=== PATIENT | female | born 1980 | race African-American/Black ===

== ENCOUNTER 2024-08-24 13:28 | Inpatient (IN) | payer MEDICAID, SELFPAY ==
--- NOTE | 2024-08-21 13:57 | HP.PCM_ITS ---
History and Physical Date of Admission: 08/24/24 HPI: The patient is a 44 year old female presenting for pre-operative visit. She is scheduled for TLH, bilateral salpingectomy and cystoscopy, for adenomyosis, menorrhagia, uterine fibroids on 08/24/24. Procedure discussed along with risks, benefits and complications. Other alternatives discussed for management. Consent form signed? Yes. ? ? 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 ? ? PAST SURGICAL HISTORY PAST SURGICAL HISTORYProcedureLateralityDate? DELIVERY ONLY?04/05/1996? , low cervical? DELIVERY ONLY?04/05/2002?, low cervical? DELIVERY ONLY?04/05/2006?low transverse?LIG/TRNSXJ FLP TUBE ABDL/VAG APPR UNI/BI?04/05/2006?at w/ filshie clips?REMOVAL GALLBLADDER???REMOVAL OF GALLBLADDER?06/03/2010?[facility] ? ? ? CURRENT MEDICATIONS Current Outpatient MedicationsMedicationSigDispenseRefill?norethindrone (AYGESTIN) 5 mg tabletTake 1 tablet by mouth once daily. start after your next period ends30 tablet1?No current facility-administered medications for this visit. ? ? ALLERGIES: Zithromax [Azithromycin] ? PERSONAL HISTORY: SOCIAL HISTORY Social History?Tobacco Use?Smoking status:Every Day??Current packs/day:0.50??Average packs/day:0.5 packs/day for 15.0 years (7.5 ttl pk- yrs)??Types:Cigarettes?Smokeless tobacco:NeverVaping Use?Vaping status:Some Days?Substances:Nicotine?Devices:DisposableSubstance Use Topics?Alcohol use:Not Currently??Comment: drinks about every other weekend, 1 pint of liquor in one weekend?Drug use:Not Currently ? FAMILY HISTORY: FAMILY HISTORY FAMILY HISTORY ProblemRelationAge of Onset?Breast CancerMaternal Aunt??Breast CancerPaternal Aunt??CancerMaternal Grandmother?? intesinal?DiabetesMother?? diet controlled?DiabetesPaternal Grandmother?? insulin dependant ?HypertensionMaternal Grandmother? ? ? REVIEW OF SYMPTOMS: GENERAL: denies fevers or chills ENDOCRINOLOGY: has not been on steroids Cardiology : denies palpitations or chest pain Respiratory: denies SOB or cough Hematology: denies history of prolonged bleeding or easy bruising or VTE Allergy: Denies history of personal or family history of allergy to anesthesia ? PHYSICAL EXAMINATION: ? VITALS: Blood pressure 120/70, pulse 80, height 160 cm (5' 3), weight 82.1 kg (181 lb), last menstrual period 08/07/2024, SpO2 97%. ? GENERAL: The patient is well nourished, well hydrated in no acute distress. , The patient is oriented to time, place, and person. NECK: Supple. No lynphadenopathy, normal thyroid, no thyromegaly. LUNGS: Clear to auscultation bilaterally. no wheezes, rhonchi or rales HEART: Regular rate and rhythm, Normal heart sounds, and No murmurs or gallops ? Pelvic US 03/14/24 Impression The uterus is anteverted and measures 95 mm x 53 mm x 83 mm. The myometrium is heterogeneous, asymmetrically thickened, and echogenic suggestive of adenomyosis. In addition, four fibroids are observed and are described below. The endometrial thickness is 7.8 mm. 1. Right lateral anterior wall subserous fibroid measures 39 mm x 39 mm x 32 mm. 2. Left lateral posterior wall intramural fibroid measures 26 mm x 17 mm x 23 mm. 3. Left lateral anterior wall subserous fibroid measures 36 mm x 29 mm x 30 mm. 4. Left lateral posterior wall intramural fibroid measures 9 mm x 6 mm x 9 mm. The right ovary measures 30 mm x 22 mm x 19 mm and contains a hemorrhagic corpus luteum cyst. The left ovary measures 24 mm x 22 mm x 14 mm. There is trace free fluid visualized. Recommendations Fibroid uterus. Clinical correlation is recommended. Ultrasound findings suggestive for adenomyosis. Clinical correlation is recommended. ? ? IMPRESSION: adenomyosis, fibroids, menorrhagia ? PLAN: The risks/benefits/alternatives and personal involved for the planned TLH, bilateral salpingectomy and cystoscopy were reviewed with the patient. Her questions were answered to her satisfaction and she desires to proceed. Consent was signed. I reviewed with her postop instructions and expectations. D/w her risk of conversion to open or minilap to remove uterus vs bivalve uterus vaginally. Decision made intra-op depending on size of uterus and vaginal access. She is comfortable with this. ? ? I have reviewed and updated past medical and surgical history, medications and allergies Assessment & Plan Assessment/Plan (1) Adenomyosis: (2) Menorrhagia: QUALIFIERS: Menorrhagia type: with regular cycle Qualified Code(s): N92.0 - Excessive and frequent menstruation with regular cycle (3) Intramural and subserous leiomyoma of uterus:
--- NOTE | 2024-08-21 17:01 | PAT.ANE_ITS ---
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 When Was Last Pacemaker Check QUESTION #4 FULL TEXT: You/Your Family Experience fever (hyperthermia) with Anesthesia Last Oral Intake Last Oral intake: Last Oral Intake NPO since Meds taken in AM with sips of water? 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 Female Yes 08/14/24 09:03 HX of Motion Sickness No 08/14/24 09:03 HX of N/V After Surgery No 08/14/24 09:03 Non-Smoker No 08/14/24 09:03 Duration of Surgery greater Yes 08/14/24 09:03 than 60 minutes Number of Risk Factors 2 08/14/24 09:03 PONV Score Moderate Risk 08/14/24 09:03 Respiratory Assessment Respiratory Assessment - professor of musicology: Respiratory Tract Infection Hx - professor of musicology Hx Respiratory Tract Infection No 08/14/24 09:03 STOP Sleep Apnea STOP Sleep Apnea - professor of musicology: STOP Sleep Apnea - professor of musicology Hx Hypertension No 08/14/24 09:03 Hx Sleep Apnea No 08/14/24 09:03 CPAP BIPAP Do you snore loudly (louder No 08/14/24 09:03 than talking or can be heard Do you often feel tired/ No 08/14/24 09:03 fatigued/ sleepy during daytime? Has anyone observed you stop No 08/14/24 09:03 breathing during sleep? STOP Results Negative 08/14/24 09:03 QUESTION #5 FULL TEXT : Do you snore loudly (louder than talking or can be heard through closed doors)? 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 Specify any problems Hx of Preganancy in last 3 N/A 08/14/24 09:03 Months Nurse Filling Out Transfusion NBUCHER 08/14/24 09:03 & Questions: Date: 08/14/24 08/14/24 09:03 Time: 09:08/14/24 09:03 Patient unable to answer at this time (ie. 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: /Reproductive Hx- professor of musicology Hx Now No 08/14/24 09:03 Gestational Age (in weeks): EDC: Hx Hx Para Hx Section [facility] No [facility] Wears glasses Smoker Gastric reflux Home Medications ?Medication ?Instructions ?Recorded ?Last Taken ?Type acetaminophen 500 mg tablet 1,000 mg (2 x 500 mg) PO Q 6H PRN 08/24/24 Unknown Rx (Acetaminophen Extra Strength) fever or pain 30 days # 90 tabs ibuprofen 600 mg tablet 600 mg PO Q6H PRN Pain 30 da ys #60 08/24/24 Unknown Rx TABLETS oxycodone 5 mg tablet 5 mg PO Q8H PRN severe pain 7 days 08/24/24 Unknown Rx #12 TABLETS docusate sodium 100 mg capsule 100 mg PO BID PRN const ipation 20 08/25/24 U nknown Rx days #40 caps Allergy/AdvReac Type Severity Reaction Status Date / Time shellfish derived Allergy Intermediate Hives Verified 08/24/24 08:23 amoxicillin Allergy Unknown PT UNSURE Verified 08/24/24 08:23 OF REACTION Penicillins Allergy Unknown PT UNSURE Verified 08/24/24 08:23 OF REACTION Surgical History History of cholecystectomy History of Social History Smoking Status: Current every day smoker tobacco type: cigarettes Recommendation Anesthesia Recommendation Anesthesia recommendation: OPTIMIZED for anesthesia
--- NOTE | 2024-08-22 07:37 | PAT.ANESEVAL ---
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 When Was Last Pacemaker Check QUESTION #4 FULL TEXT: You/Your Family Experience fever (hyperthermia) with Anesthesia Last Oral Intake Last Oral intake: Last Oral Intake NPO since Meds taken in AM with sips of water? 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 Female Yes 08/14/24 09:03 HX of Motion Sickness No 08/14/24 09:03 HX of N/V After Surgery No 08/14/24 09:03 Non-Smoker No 08/14/24 09:03 Duration of Surgery greater Yes 08/14/24 09:03 than 60 minutes Number of Risk Factors 2 08/14/24 09:03 PONV Score Moderate Risk 08/14/24 09:03 Respiratory Assessment Respiratory Assessment - corrections lieutenant: Respiratory Tract Infection Hx - corrections lieutenant Hx Respiratory Tract Infection No 08/14/24 09:03 STOP Sleep Apnea STOP Sleep Apnea - corrections lieutenant: STOP Sleep Apnea - corrections lieutenant Hx Hypertension No 08/14/24 09:03 Hx Sleep Apnea No 08/14/24 09:03 CPAP BIPAP Do you snore loudly (louder No 08/14/24 09:03 than talking or can be heard Do you often feel tired/ No 08/14/24 09:03 fatigued/ sleepy during daytime? Has anyone observed you stop No 08/14/24 09:03 breathing during sleep? STOP Results Negative 08/14/24 09:03 QUESTION #5 FULL TEXT : Do you snore loudly (louder than talking or can be heard through closed doors)? 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 Specify any problems Hx of Preganancy in last 3 N/A 08/14/24 09:03 Months Nurse Filling Out Transfusion NBUCHER 08/14/24 09:03 & Questions: Date: 08/14/24 08/14/24 09:03 Time: 09:05 08/14/24 09:03 Patient unable to answer at this time (ie. 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 - corrections lieutenant: /Reproductive Hx- corrections lieutenant Hx Now No 08/14/24 09:03 Gestational Age (in weeks): EDC: Hx Hx Para Hx Section SAB No 08/14/24 09:03 PFSH Medical History (Updated 08/21/24 @ 13:[address] Linsey Pritchett MD) Wears glasses Smoker Gastric reflux Allergy/AdvReac Type Severity Reaction Status Date / Time shellfish derived Allergy Intermediate Hives Verified 08/14/24 09:02 amoxicillin Allergy Unknown PT UNSURE Verified 08/14/24 09:02 OF REACTION Penicillins Allergy Unknown PT UNSURE Verified 08/14/24 09:02 OF REACTION Surgical History (Updated 08/14/24 @ 09:09 by Yumiko Hanna) History of cholecystectomy History of Social History Smoking Status: Current every day smoker tobacco type: cigarettes Audit: Pertinent Findings Pertinent Findings EKG Perinent findings: review on day of procedure Recommendation Anesthesia Recommendation Anesthesia recommendation: OPTIMIZED for anesthesia
[2024-08-24] VITALS (12 sets, daily range): BP systolic 110–131; BP diastolic 47–92; PULSE 79–91; RESP 16–18; TEMP 36.3–36.7; O2SAT 97–100; BMI 32.1
--- NOTE | 2024-08-24 07:25 | PRE.ANES_ITS ---
ASA Classification* ASA Classification ASA Classification: 2 Assessment & Plan Anesthesia* Anesthesia Assessment Anesthesia Assessment: Discussed sedation and/or anesthesia options, risks, benefits, and alternatives with patient/parents/legal guardian/POA. Questions invited. The patient/parents/legal guardian/POA seems to understand and agrees to proceed with anesthesia plan. Reviewed the physical assessment, medical history, allergy history and patient home medications list prior to surgery/procedure/anesthetic and documented any changes. Performed airway and anesthesia risk assessments. 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 When Was Last Pacemaker Check QUESTION #4 FULL TEXT: You/Your Family Experience fever (hyperthermia) with Anesthesia Last Oral Intake Last Oral intake: Last Oral Intake NPO since Meds taken in AM with sips of water? 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 Has anyone observed you stop No 08/14/24 09:03 breathing during sleep? STOP Results Negative 08/14/24 09:03 QUESTION #5 FULL TEXT : Do you snore loudly (louder than talking or can be heard through closed doors)? 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 Specify any problems Hx of Preganancy in last 3 N/A 08/14/24 09:03 Months Nurse Filling Out Transfusion NBUCHER 08/14/24 09:03 & Questions: Date: 08/14/24 08/14/24 09:03 Time: 09:05 08/14/24 09:03 Patient unable to answer at this time (ie. 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: /Reproductive Hx- accountant machine processing Hx Now No 08/14/24 09:03 Gestational Age (in weeks): EDC: Hx Hx Para Hx Section SAB No 08/14/24 09:03 Active Medications Active Medications: Current Medications Generic Name Dose Route Start Last Admin Trade Name Freq PRN Reason Stop Dose Admin Acetaminophen 1,000 mg 08/24/24 10:15 Acetaminophen 500 Mg Tablet PO 08/24/24 10:16 PREOP ONE Celecoxib 400 mg 08/24/24 10:15 Celecoxib 200 Mg Capsule PO 08/24/24 10:16 PREOP ONE Dexamethasone Sodium Phosphate 8 mg 08/24/24 10:15 Dexamethasone 4 Mg/Ml Vial IV 08/24/24 10:16 INTRAOP ONE Enoxaparin Sodium 40 mg 08/24/24 10:15 Enoxaparin 40 Mg/0.4 Ml Syringe SC 08/24/24 10:16 PREOP ONE Gabapentin 600 mg 08/24/24 10:15 Gabapentin 600 Mg Tablet PO 08/24/24 10:16 PREOP ONE Lactated Ringer's 1,000 mls @ 40 mls/hr 08/24/24 10:15 IV .Q25H FORREST Cefazolin Sodium 2 gm/ Sodium 110 mls @ 150 mls/hr 08/24/24 10:15 Chloride IV 08/24/24 10:58 INTRAOP ONE Lactated Ringer's 1,000 mls @ 40 mls/hr 08/24/24 10:15 IV .Q25H FORREST Insulin Human Lispro 0 unit 08/24/24 10:15 Insulin Lispro 100 Unit/Ml Insuln.Pen SC Q4H PRN PRN BG >/= 180, SEE PROTOCOL Protocol Ondansetron HCl 4 mg 08/24/24 10:15 Ondansetron 4 Mg/2 Ml Vial IV 08/24/24 10:16 INTRAOP ONE Phenazopyridine HCl 190 mg 08/24/24 10:15 Phenazopyridine 95 Mg Tablet PO 08/24/24 10:16 PREOP ONE Scopolamine HBr 1 patch 08/24/24 10:15 Scopolamine 1mg/72hr Patch TD 08/24/24 10:16 PREOP ONE PFSH Medical History Wears glasses Smoker Gastric reflux Allergy/AdvReac Type Severity Reaction Status Date / Time shellfish derived Allergy Intermediate Hives Verified 08/14/24 09:02 amoxicillin Allergy Unknown PT UNSURE Verified 08/14/24 09:02 OF REACTION Penicillins Allergy Unknown PT UNSURE Verified 08/14/24 09:02 OF REACTION Surgical History History of cholecystectomy History of Social History Smoking Status: Current every day smoker tobacco type: cigarettes Review of Systems (Anesthesia) ROS Narrative System reviewed and no additional complaints, except as documented.
[2024-08-24 09:07] LABS: Hematocrit 33.2 % (37-47); Mean Corp Hgb Conc 33.1 g/dL (32-36); Mean Corpuscular Hgb 28.1 pg (27.0-32.0); Mean Corpuscular Volume 84.7 fL (81-99); Mean Platelet Vol. 8.7 fl (6.2-12.0); Platelet Count 297 K/mm3 (150-450); RBC Distribution Width CV 14.8 % (11.6-14.6); RBC Distribution Width SD 45.6 fl (35.1-43.9); Red Blood Count 3.92 M/mm3 (4.2-5.4); White Blood Count 5.8 K/mm3 (4.4-11.0)
[2024-08-24 09:07] LABS: Internal QC Validated? YES +Cl - CLEAR BKGD; Pregnancy, Urine Negative Negative
[2024-08-24] MEDS: Scopolamine 1mg/72hr Patch 1 PATCH TD (09:08)
[2024-08-24] MEDS: Enoxaparin 40 MG/0.4 ML Syringe SC (09:08)
[2024-08-24] MEDS: Lactated Ringers 1,000 ML 40 ML IV (09:08)
[2024-08-24 09:09] LABS: Bedside Glucose 107 mg/dL (74-106)
[2024-08-24] MEDS: Celecoxib 200 MG Capsule 400 MG PO (09:09)
[2024-08-24] MEDS: Phenazopyridine 95 MG Tablet 190 MG PO (09:09)
[2024-08-24] MEDS: Acetaminophen 500 MG Tablet 1000 MG PO ×3 (09:09→23:11)
[2024-08-24] MEDS: Gabapentin 600 MG Tablet PO (09:10)
[2024-08-24 09:28] LABS: Magnesium 1.6 mg/dL (1.5-2.2)
[2024-08-24] MEDS: Magnesium 2 GM for ERAS IV (10:00)
--- NOTE | 2024-08-24 10:15 | FALS_PTH ---
PATIENT: ALYSON BRUNO LOC: [facility] U#:[id number] AGE/SX: 44/F ROOM: [facility]318 RE08/24/[address]: Dr. Linsey Pritchett MD : 1980 BED: 1 DIS: 08/25/2024 SPEC #: [id number] RECD: 08/24/24 15:21 STATUS: KASH RUIZ #: [id number] ZACHARY: 08/24/24 10:[address]: Linsey Pritchett DEPT: SURGICAL PATHOLOGY RECD BY: Sarkis Lipscomb ENTERED: 08/24/24 15:53 SP TYPE: FALL TUBES OTHR DR: No Primary Care Phys Tissues: A - Uterus, NOS B - Fallopian tube C - Fallopian tube Procedures: Surgery Specimen Level II Surgery Specimen Level V HEADER OPERATION: ERAS, open hysterectomy, bilateral salpingectomy, right oopherectomy PRE-OP DIAGNOSIS: Adenomyosis, menorrhagia, intramural and subserous leiomyoma of uterus TISSUE SUBMITTED: A- Uterus, B- Right fallopian tube and ovary, C- Left fallopian tube MICROSCOPIC DIAGNOSIS A. Uterus, hysterectomy: * Benign squamous epithelium and endocervical glandular tissue with squamous metaplasia * Secretory endometrium * Adenomyosis * Leiomyomata B. Right fallopian tube and ovary, right salpingo-oophorectomy: * Corpus luteum * Corpora albicantia * Benign fallopian tube with plical fibrosis C. Left fallopian tube, left salpingectomy: * Benign fallopian tube with plical fibrosis MICROSCOPIC DESCRIPTION Slides are reviewed. GROSS DESCRIPTION A. Received in formalin in a container labeled with the patient's name, date of , and uterus is a 174.6 g large and globoid hysterectomy specimen measuring 10 cm from fundus to ectocervix, 6.5 cm from cornu to cornu, and 5.0 cm from anterior to posterior. The serosa is floyd-pink with dense adhesions and multiple shaggy, disrupted areas with protruding underlying nodules. The ectocervix is diffusely roughened measuring approximately 1.8 x 1.1 cm with a 0.3 cm slitlike os. No typical white-pink and smooth ectocervix is identified. The specimen is bivalved to reveal a 4.5 x 1.0 cm floyd-pink and unremarkable endocervical canal. The triangular endometrial cavity is 4.5 cm in length by 2.7 cm in width. There is red-floyd, velvety endometrium measuring up to 0.3 cm in greatest thickness. The floyd-pink myometrium is somewhat trabecular and measures up to 3.1 cm in greatest thickness. There are an abundance of submucosal, intramural, and subserosal myometrial nodules within the anterior and posterior myometrium ranging from 0.3 x 0.3 x 0.3 cm to 2.7 x 2.6 x 2.3 cm. The largest nodule within the anterior myometrium exhibits focal yellow discolorations. The remaining nodules are white and whorled with no hemorrhage or necrosis. Ticket Collector sections:A1. Anterior cervix (2 sections) with serosal shave at densely adhesed areaA2. Posterior cervix with serosal shaves at disrupted area and posterior [id number]. Anterior endomyometrium with nodules (superficial x 2)A4. Posterior endomyometrium with nodules (superficial x 2) A5. Largest anterior nodule with focal yellow discolorationsA6-7. Sampled myometrial nodules B. Received in formalin in a container labeled with the patient's name, date of , and right fallopian tube and ovary is a 2.5 x 1.0 cm purple-kohli and fimbriated fallopian tube segment. Sectioning reveals a pinpoint lumen. The right ovary is 6.8 g and 2.8 x 2.0 x 1.9 cm. The outer surface is floyd-pink with a protruding 0.9 x 0.5 x 0.5 cm hemorrhagic-appearing nodule. The outer surface is inked black and serial sections reveal that the nodule exhibits red-brown, hemorrhagic surfaces that grossly appear consistent with a cystic corpus luteum. There are multiple floyd-orange corpora lutea with central hemorrhage scattered throughout ranging from 0.2 to 0.6 cm in greatest dimension. The remaining parenchyma is floyd-pink and unremarkable. No firm or papillary areas are identified. Ticket Collector sections:B1. Fallopian tubeB2-3. Right ovary C. Received in formalin in a container labeled with the patient's name, date of , and left fallopian tube is a 2.0 x 0.9 cm floyd-pink and fimbriated fallopian tube. Sectioning reveals a pinpoint lumen. Ticket Collector sections are submitted in C1. [facility] 08-24-2024
[2024-08-24] MEDS: Cefazolin 2 GM in 0.9% Normal Saline (100mL Bag) 100 ML IV (11:00)
--- NOTE | 2024-08-24 11:08 | PCM.DC ---
Discharge Instructions DC O2, CPAP, BIPAP needs Home O2 Discharge instructions: No Dressing / Incision May shower in (days): 1 May resume sexual activity in: 6-8 weeks and - (Nothing in your vagina for 6 weeks. No vaginal or anal intercourse for 6-8 weeks) Dressing / Incision Call your doctor if your incision/area has: Continuous Slow Oozing, Sudden Increased Bleeding, Increased Pain/ Swelling, Increased Redness and Foul Smelling Discharge Call your doctor if you observe: Fever of 101 or Higher Cleanse incision/area with: Soap & Water and - (Your incisions have skin glue, it can get wet, leave the glue on until it falls off. ) Follow Up Care Please Follow Up With: Linsey Pritchett MD When: With my office in 1-2 and 6 weeks or as needed. [phone] call or send a [employer] message for questions,. Test Results: Test results from this visit will be discussed in further detail at your follow-up appointment, if applicable. Discharge Plan Admission Primary Reason for Your Visit: Hysterectomy Attending Provider: Linsey Pritchett Primary Care Provider: Care Physician,No Primary Instructions Print Language: Serbian Discharge Orders/Prescriptions Prescriptions: New acetaminophen [Acetaminophen Extra Strength] 500 mg tablet 1,000 mg PO Q6H PRN (Reason: fever or pain) 30 Days Qty: 90 0RF ibuprofen 600 mg tablet 600 mg PO Q6H PRN (Reason: Pain) 30 Days Qty: 60 1RF oxycodone 5 mg tablet 5 mg PO Q8H PRN (Reason: severe pain) 7 Days Qty: 12 0RF Referrals / Follow Up: Linsey Pritchett MD [[facility] Staff - Active Staff] - Disposition Disposition (needs filled in before D/C Order can be placed): Home, Self Care
[2024-08-24] MEDS: Bupivacaine Mpf 0.5% 30 ML VIAL (12:00)
--- NOTE | 2024-08-24 14:05 | PCM.POST.ANE ---
Anesthesia: Postop Eval I Current Vital Signs Temperature: 98.1 F Pulse Rate: 84 Blood Pressure: 131/92 Respiratory Rate: 18 Pulse Ox: 100 Assessment Airway patent: Yes Spontaneous unlabored respirations: Yes nausea: No Vomiting: No Anesthesia Complication: No Fluid Hydration Crystalloid volume administer (ml): 1,500 Total IV fluid infused: 1,500 Progress Note Anesthesia document: Postop Eval 1 completed: Yes
--- NOTE | 2024-08-24 14:08 | OP.PCM_ITS ---
Problems Associated Problem List Diagnoses (1) Intramural and subserous leiomyoma of uterus: (2) Menorrhagia: (3) Adenomyosis: Operative Report (Standard) Operative Information Date of Procedure: 08/24/24 Pre-Operative Diagnosis: menorrhagia, uterine fibroids, adenomyosis Post-Operative Diagnosis: same Surgery/Procedure Performed: diagnostic laparascopy, LOREN, bilateral salpingectomy, right oophorectomy, cystoscopy tester rocket engine: Yes Block Trimmer: Jennifer Rodriguez Tasks completed by bindery library technical assistant: Closing, Altering tissue, Hemostasis: Electrocautery and Retracting Additional medical services assistant?: Yes Additional Cp Bleacher Operator #2: Teresa Ruiz PGY3 Tasks completed by medical services assistant #2: Opening, Closing, Dissecting tissue, Removing tissue, Hemostasis: Tie, Hemostasis: Electrocautery and Retracting Additional medical services assistant?: Yes Additional Cp Bleacher Operator #3: Noemi Nelson MS3 Tasks completed by medical services assistant #3: Closing and Retracting Additional medical services assistant?: No Type of Anesthesia: General RN Documented Start/Stop Times: Operation Date: 08/24/24 10:15 Case Time Into Pre-Op 08/24/24 08:24 Out of Pre-Op 08/24/24 10:54 Anesthesia Start 08/24/24 11:00 Into Room 08/24/24 11:00 Procedure Start 08/24/24 11:26 Procedure End 08/24/24 13:48 Anesthesia End 08/24/24 13:57 Out of Room 08/24/24 13:57 Procedure Start Time: 11:26 Procedure Stop Time: 13:48 Select all DRAINS/GRAFTS/IMPLANTS that apply: Drains Drain details: tate Estimated Blood Loss: 200 Fluids Replaced: 1500 cc LR Specimen collected: Yes Description of specimen(s) removed: uterus,cervix, bilateral tubes, right ovary Description of surgery: The patient was taken the operating room where she prepped and draped in dorsal lithotomy position. The arms were tucked at her sides and she was placed in a neurologically safe and neutral position. Her legs were placed in yellowfin stirrups. Because of her previous abdominal surgeries and scars in her short torso decision was made to enter the abdominal cavity and left upper quadrant. Stomach contents were drained by anesthesia. 2 towel clamps were used to tent up the abdomen and Marcaine was used to anesthetize the skin. A 5 mm incision and 5 mm trocar and sleeve advanced into the peritoneal cavity using the Visiport. The pneumoperitoneum was created and the patient was placed in Trendelenburg. There were some extensive adhesions of the omentum noted we are able to maneuver the laparoscope around them and placed a right sided trocar. Using these 2 ports we were still right on top of the fundus of the uterus and had no significant ability to manipulate the uterus and there wall of adhesions would have taken extensive amount of time to take down. Decision was made to convert to a laparotomy. A Pfannenstiel skin incision was made approximately 2 cm above the symphysis pubis and carried through to underlying layer fascia with a scalpel. This was made through her prior existing Pfannenstiel incision from her C-sections. Hemostasis was assured with cauterization and the incision was made. The fascia was incised in the midline and the fascial incision extended laterally with the Arteaga scissors. The fascia was dissected off the rectus muscles and the rectus muscles were in the midline. The peritoneal incision was made bluntly and carried superiorly and inferiorly with good visualization of bladder. The patient was placed in Trendelenburg position. We had to take down some omental adhesions with a light pressure device and blunt dissection. Decision was made to use the Nabeel O retractor and this was placed in the peritoneal cavity. Care was taken to ensure no bowel was trapped beneath it. It was rolled down to allow visualization and the bowel was packed away with moist laparotomy sponges. The uterus was grasped and brought up through the incision. The adhesions of the uterus to the omentum especially on the left side were taken down with the Bovie and the LigaSure device. Hemostasis was noted. The round ligaments were then clamped, transected and suture ligated. The round ligament was divided in the anterior peritoneum was taken down with sharp and blunt dissection and the bladder flap was created. The utero-ovarian ligament on both sides was clamped sealed and transected with the LigaSure device. There was some adhesions of the bladder flap and care was used to take these down with both blunt and sharp dissection and a sponge stick. The uterine arteries were skeletonized, and then clamped sealed and transected with the LigaSure device.. Hemostasis was assured. The cardinal ligaments were clamped, transected and suture ligated. Serial clamps were placed down the cervix until the level of the cervicovaginal junction was reached. Care was again taken to ensure that the bladder was down adequately. Curved Darian clamps were placed around the cervix and the ut erosacral ligaments at the upper junction of the vagina. The cervix and uterus were then amputated and the pedicles were oversewn with 0 Vicryl suture. 2 [id number]-[id number] suture was needed in the midline to close the vaginal epithelium completely. The antimesenteric portions of the tube or clamped sealed and transected and amputated with the LigaSure device. There was some bleeding from along the right pelvic sidewall and it was found that the infundibulopelvic ligament was bleeding. I was unable to oversew the portion that was bleeding as it appeared to be pulling away from the pelvic side wall. This is where most of the blood loss during the surgery came from. This had to be clamped and the ovary removed to obtain hemostasis. There was some bleeding from the right vaginal cuff angle and a vbvdnp-dk-fynao suture had to be placed in this area around a vessel to obtain hemostasis. There was some generalized oozing from the peritoneal surfaces. Some Hemablast was placed over this. The retractor and laparotomy sponges were removed. The parietal peritoneum and rectus muscles were closed en bloc with 0 vicryl suture. The fascia was closed with #1 PDS suture in a running standard fashion. The subcutaneous tissue was reapproximated with 3-0 vicryl suture in a running fashion. The skin was closed with 4-0 Monocryl in a subcuticular fashion. I was present and performed the entire procedure with assistance until closing the abdominal wall which was performed by Dr. Yarbrough and I was immediately available. All sponge lap and needle counts were correct and the patient was transferred to the recovery room in stable condition Surgical Findings: boggy enlarged uterus, extensive adhesions of omentum to anterior uterus, a nterior abdominal wall and LUQ limiting visualization, normal ovaries and cervix Complications Complications: No Admit VTE Documentation VTE Present on Admission: No VTE Mechan Device Prophylaxis: SCD's VTE Pharm Prophylaxis ordered?: Yes
[2024-08-24] MEDS: Lactated Ringers @ 40 MLS/HR 40 ML IV (14:15)
--- NOTE | 2024-08-24 14:22 | POSTOPAN2_ITS ---
Anesthesia Postop Eval I Sum Postop Eval Completion status Anesthesia document: Postop Eval 1 completed: Yes Anesthesia Postop Eval I Summary Anesthesia Postop Eval I Summary: Anesthesia Postop Eval I: Assessment Summary Airway patent Yes 08/24/24 14:05 [email or web address] [email or web address] Spontaneous unlabored Yes 08/24/24 14:05 [email or web address] [email or web address] respirations Mental status nausea No 08/24/24 14:05 [email or web address] [email or web address] Vomiting No 08/24/24 14:05 MAIL [email or web address] Anesthesia Postop Eval I: Fluid Summary Crystalloid volume administer 1,500 08/24/24 14:05 MAIL [email or web address] (ml) Colloids volume administered ( ml) Blood Product volume administered (ml) Total IV fluid infused 1,500 08/24/24 14:05 [email or web address] [email or web address] Anesthesia Postop Eval I: Summary Notes Anesthesia Complication No 08/24/24 14:05 MAIL [email or web address] Anesthesia Complication Comment: Post-operative progress note Anesthesia: Postop Eval II Evaluation Mental status: Awake Pain Level: 2 nausea: No Vomiting: No
--- NOTE | 2024-08-24 14:22 | PCM.POSTANE2 ---
Anesthesia Postop Eval I Sum Postop Eval Completion status Anesthesia document: Postop Eval 1 completed: Yes Anesthesia Postop Eval I Summary Anesthesia Postop Eval I Summary: Anesthesia Postop Eval I: Assessment Summary Airway patent Yes 08/24/24 14:05 [email or web address] Spontaneous unlabored Yes 08/24/24 14:05 [email or web address] respirations Mental status nausea No 08/24/24 14:05 [email or web address] Vomiting No 08/24/24 14:05 [email or web address] Anesthesia Postop Eval I: Fluid Summary Crystalloid volume administer 1,500 08/24/24 14:05 [email or web address] (ml) Colloids volume administered ( ml) Blood Product volume administered (ml) Total IV fluid infused 1,500 08/24/24 14:05 [email or web address] Anesthesia Postop Eval I: Summary Notes Anesthesia Complication No 08/24/24 14:05 [email or web address] Anesthesia Complication Comment: Post-operative progress note Anesthesia: Postop Eval II Evaluation Mental status: Awake Pain Level: 2 nausea: No Vomiting: No
[2024-08-24 17:19] LABS: Hematocrit 35.4 % (37-47); Hemoglobin 11.7 g/dL (12.0-15.0); Mean Corp Hgb Conc 33.1 g/dL (32-36); Mean Corpuscular Hgb 28.1 pg (27.0-32.0); Mean Corpuscular Volume 85.1 fL (81-99); Mean Platelet Vol. 8.8 fl (6.2-12.0); Platelet Count 326 K/mm3 (150-450); RBC Distribution Width CV 14.7 % (11.6-14.6); RBC Distribution Width SD 45.4 fl (35.1-43.9); Red Blood Count 4.16 M/mm3 (4.2-5.4); White Blood Count 13.5 K/mm3 (4.4-11.0)
[2024-08-24] MEDS: Docusate Sodium 100 MG Capsule PO (21:32)
[2024-08-25 03:11] VITALS: BP 118/54; PULSE 84; RESP 16; TEMP 36.6; O2SAT 96
[2024-08-25] MEDS: Acetaminophen 500 MG Tablet 1000 MG PO ×2 (05:38→11:25)
[2024-08-25] MEDS: Lactated Ringers @ 40 MLS/HR 40 ML IV (05:39)
[2024-08-25 06:19] VITALS: BP 117/59; PULSE 79; RESP 16; TEMP 36.6; O2SAT 97
[2024-08-25 07:00] LABS: Hematocrit 29.4 % (37-47); Hemoglobin 9.8 g/dL (12.0-15.0); Mean Corp Hgb Conc 33.3 g/dL (32-36); Mean Corpuscular Hgb 28.4 pg (27.0-32.0); Mean Corpuscular Volume 85.2 fL (81-99); Mean Platelet Vol. 9.4 fl (6.2-12.0); Platelet Count 314 K/mm3 (150-450); RBC Distribution Width CV 14.8 % (11.6-14.6); Red Blood Count 3.45 M/mm3 (4.2-5.4); White Blood Count 8.9 K/mm3 (4.4-11.0)
[2024-08-25] MEDS: Docusate Sodium 100 MG Capsule PO (07:52)
--- NOTE | 2024-08-25 08:22 | PCM.PN.BLA ---
Progress Note pain well controlled, average lochia. No fevers or chills. No N/V. No flatus. No CP/SOB. Physical Exam Narrative awake, alert, NAD abd-soft nontender nondistended Incisions: Bandages clean dry and intact and small 5 mm port sites are dry and intact Assessment & Plan Assessment/Plan (1) Intramural and subserous leiomyoma of uterus: (2) Menorrhagia: QUALIFIERS: Menorrhagia type: with regular cycle Qualified Code(s): N92.0 - Excessive and frequent menstruation with regular cycle (3) Adenomyosis: PLAN: Plan Postoperative day #1 status post total abdominal hysterectomy due to extensive adhesions and size of the uterus. Patient is doing well. She has chronic iron deficiency anemia from heavy menses. Blood count is appropriate for postop state. Will check another CBC later today and if stable okay to DC home with routine postop instructions. I reviewed past intraoperative findings and course, pathology is pending. Reviewed postop restrictions and expectations. Prescriptions were sent to her pharmacy.
--- NOTE | 2024-08-25 09:10 | CASEMGMT ---
SHAISTA WINTERS Assessment: Face to Face with pt for initial transition planning/care coordination assessment. SHAISTA WINTERS introduced self and role at [facility], pt voices understanding and consents to assessment. Pt is A&O x4 and answers all questions appropriately at this time. Pt lying in bed in no distress. Care providers, pharmacy, and demographics verified/updated. Admitting Dx: hysterectomy Strata Score: 1 PCP:Pt has an upcoming appt with PCP to be established. She cannot recall the name. Specialists:Shreyas BARREL RIFLER HOOK Preferred Pharmacy: [facility] Insurance: [facility] Prescription Benefit: yes LNOK: Philomena Jessica, mother Living Arrangements: Pt lives with son in a single story home with 3 steps to enter. Pt reports she is I in ADLs/IADLs and denies concerns at home. Transportation: Pt drives self and denies concerns with transportation. DME:[facility] HHC/SNF: Denies hx of Pt states no concerns with going home at time of dc. Pt states she has an upcoming appt with Dr. Diaz who she thinks is an ortho for her hip. Pt states no further concerns/needs. CM to follow. Advised pt to ask CM if any further questions/concerns/needs arise, voices understanding. Pt Goal: Home Plan: Home Jennifer NOONAN CM
--- NOTE | 2024-08-25 10:49 | PHA.DC.MC.R ---
Pharmacy [facility] Counseling Pharmacy Service has performed discharge medication reconciliation and counseling for this patient. 1. ACETAMINOPHEN 1000MG PO Q6H PRN PAIN/FEVER 2. DOCUSATE 100MG PO BID PRN CONSTIPATION 3. IBUPROFEN 600MG PO Q6H PRN PAIN 4. OXYCODONE 5MG PO Q8H PRN SEVERE PAIN The patient's discharge medication list was reviewed for discrepancies and discrepancies were resolved. The patient was counseled on the following discharge medications and changes in medications for homegoing were reviewed. The Reason for Use, instructions for use, and potential side effects were reviewed for all new medications. The patient's questions regarding all of their medications were answered. The patient was able to verbally demonstrate an understanding of their discharge medications. Medications at Discharge Home Medications acetaminophen 500 mg tablet (Acetaminophen Extra Strength) 1,000 mg (2 x 500 mg) PO Q6H PRN fever or pain 30 days #90 tabs 08/24/24 ibuprofen 600 mg tablet 600 mg PO Q6H PRN Pain 30 days #60 TABLETS 08/24/24 oxycodone 5 mg tablet 5 mg PO Q8H PRN severe pain 7 days #12 TABLETS 08/24/24 docusate sodium 100 mg capsule 100 mg PO BID PRN constipation 20 days #40 caps 08/25/24
[2024-08-25 11:28] LABS: Hematocrit 31.3 % (37-47); Hemoglobin 10.4 g/dL (12.0-15.0); Mean Corp Hgb Conc 33.2 g/dL (32-36); Mean Corpuscular Hgb 28.3 pg (27.0-32.0); Mean Corpuscular Volume 85.1 fL (81-99); Mean Platelet Vol. 9.1 fl (6.2-12.0); Platelet Count 324 K/mm3 (150-450); RBC Distribution Width CV 14.7 % (11.6-14.6); Red Blood Count 3.68 M/mm3 (4.2-5.4); White Blood Count 9.7 K/mm3 (4.4-11.0)
[2024-08-25 12:52] VITALS: BP 124/52; PULSE 76; RESP 16; TEMP 37; O2SAT 100
== END 2024-08-25 13:35 | disposition home or self-care (01) | DRG 519 ==
LOC: SDC 14:05 → MS3 14:05
PROVIDERS: Anesthesiology; Admitting Provider Obstetrics & Gynecology; Referring Provider Obstetrics & Gynecology; Visit Provider Obstetrics & Gynecology
PROC: 0UT94ZZ Resection of Uterus, Percutaneous Endoscopic Approach (ICD-10-PCS; principal; 2024-08-24 10:00)
DX: D25.2 Subserosal leiomyoma of uterus (principal); D25.1 Intramural leiomyoma of uterus; D50.0 Iron deficiency anemia secondary to blood loss (chronic); F17.210 Nicotine dependence, cigarettes, uncomplicated; K66.0 Peritoneal adhesions (postprocedural) (postinfection); N83.11 Corpus luteum cyst of right ovary; N80.03 Adenomyosis of the uterus; N73.6 Female pelvic peritoneal adhesions (postinfective); Z53.31 Laparoscopic surgical procedure converted to open procedure; N92.0 Excessive and frequent menstruation with regular cycle
CPT/HCPCS: 36415; 81025; 82962; 83735; 85027; 86850; 86900; 86901; 88302; 88307; 94668; J2405